=== PATIENT | male | born 1975 | race Caucasian/White ===

== ENCOUNTER 2017-02-17 09:28 | Inpatient (IN) | payer OTHER ==
[2017-02-17 10:03] VITALS: BMI 29.0
--- NOTE | 2017-02-17 12:27 | HP ---
Admission ROS [facility] - [facility] Chief Complaint: requesting rehab from marijuana and PCP Allergies/Adverse Reactions: Allergies Allergy/AdvReac Type Severity Reaction Status Date / Time No Known Allergies Allergy Verified 02/17/17 11:17 History of Present Illness: 42 yo m wiht h/o marijuana and PCP use disorder, sober x 2 years longest 2013- 2014. PMHx buipolar do, schizoaffective, nciotine dependence, HTN not taking meds . no suicidea ttempts, no si. at this time. reports depression and recent wt loss cause he is not hyngry Exam Limitations: No Limitations - Ebola screening Have you traveled outside of the country in the last 21 days: No (N) Have you had contact with anyone from an Ebola affected area: No Have you been sick,other than usual withdrawal symptoms: No Do you have a fever: No - Review of Systems Constitutional: No Symptoms Reported EENT: reports: No Symptoms Reported Respiratory: reports: No Symptoms reported Cardiac: reports: No Symptoms Reported GI: reports: No Symptoms Reported : reports: No Symptoms Reported Musculoskeletal: reports: No Symptoms Reported Integumentary: reports: No Symptoms Reported Neuro: reports: No Symptoms reported Endocrine: reports: No Symptoms Reported Hematology: reports: No Symptoms Reported Psychiatric: reports: Judgement Intact, Mood/Affect Appropiate, Orientated x3, Anxious, Depressed Other Systems: Reviewed and Negative Patient History - Patient Medical History Hx Anemia: No Hx Asthma: No Hx Chronic Obstructive Pulmonary Disease (COPD): No Hx Cancer: No Hx Cardiac Disorders: No Hx Congestive Heart Failure: No Hx Hypertension: Yes Hx Hypercholesterolemia: Yes Hx Pacemaker: No HX Cerebrovascular Accident: No Hx Seizures: No Hx Dementia: No Hx Diabetes: No Hx Gastrointestinal Disorders: No Hx Liver Disease: No Hx Genitourinary Disorders: No Hx Sexually Transmitted Disorders: No Hx Renal Disease (ESRD): No Hx Thyroid Disease: No Hx Human Immunodeficiency Virus (HIV): No (3 mos ago) Hx Hepatitis C: No Hx Depression: Yes Hx Suicide Attempt: Yes (no si) Hx Bipolar Disorder: No Hx Schizophrenia: Yes Other Medical History: schizoaffective - Patient Surgical History Past Surgical History: Yes Hx Neurologic Surgery: No Hx Cataract Extraction: No Hx Cardiac Surgery: No Hx Lung Surgery: No Hx Breast Surgery: No Hx Breast Biopsy: No Hx Abdominal Surgery: No Hx Appendectomy: No Hx Cholecystectomy: No Hx Genitourinary Surgery: No Hx Section: No Hx Orthopedic Surgery: No Other Surgical History: detached retina , right in 2006 Anesthesia Reaction: No - PPD History Previous Implant?: Yes Documented Results: Negative w/o proof PPD to be Administered?: Yes - Reproductive History Patient is a Female of Child Bearing Age (11 -55 yrs old): No Patient : No - Smoking Cessation Smoking history: Current every day smoker Have you smoked in the past 12 months: Yes Aproximately how many cigarettes per day: 6 Hx Chewing Tobacco Use: No Initiated information on smoking cessation: Yes 'Breaking Loose' booklet given: 02/17/17 - Substance & Tx. History Hx Alcohol Use: No Hx Substance Use: Yes Substance Use Type: Marijuana Hx Substance Use Treatment: Yes (last treatment episode [facility] iop) - Substances Abused PCP Route: Smoking Frequency: 3-6 times per week Amount used: $50 Age of first use: 20 Date of Last Use: 02/10/17 mariuana Route: Smoking Frequency: Daily Amount used: $50 Age of first use: 11 Date of Last Use: 02/16/17 Family Disease History - Family Disease History Family Disease History: Other: Father (etoh), Brother (etoh/drugs) Admission Physical Exam [facility] - Vital Signs Vital Signs: Vital Signs - 24 hr 02/17/17 10:00 Temperature 96.9 F L Pulse Rate 86 Respiratory 18 Rate Blood Pressure 150/86 - Physical General Appearance: Yes: Nourished, Appropriately Dressed HEENTM: Yes: Within Normal Limits, EOMI, Hearing grossly Normal, Normal ENT Inspection, Normocephalic, Normal Voice, PHI, Pharynx Normal Respiratory: Yes: Within Normal Limits, Chest Non-Tender, Lungs Clear, Normal Breath Sounds, No Respiratory Distress, No Accessory Muscle Use Neck: Yes: Within Normal Limits, No masses,lesions,Nodules, Supple, Trachea in good position Breast: Yes: Breast Exam Deferred Cardiology: Yes: Within Normal Limits, Regular Rhythm, Regular Rate, S1, S2 Abdominal: Yes: Normal Bowel Sounds, Non Tender, Flat, Soft Genitourinary: Yes: Within Normal Limits Back: Yes: Within Normal Limits, Normal Inspection Musculoskeletal: Yes: Within Normal Limits, full range of Motion, Gait Steady, Pelvis Stable Extremities: Yes: Within Normal Limits, Normal Capillary Refill, Normal Inspection, Normal Range of Motion, Non-Tender Neurological: Yes: compliance officer II-XII NML intact, Fully Oriented, Alert, Motor Strength 5/5, Normal Response, Depressed Affect Integumentary: Yes: Within Normal Limits, Normal Color, Dry Lymphatic: Yes: Within Normal Limits - Addiitonal Findings: no signs of withdrawawl wt loss and depression noted - Diagnostic (1) Cannabis dependence Current Visit: No Status: Acute (2) Depression Current Visit: No Status: Acute (3) History of antisocial personality disorder Current Visit: No Status: Acute (4) PCP abuse Current Visit: No Status: Acute (5) Substance induced mood disorder Current Visit: No Status: Acute (6) Retinal detachment Current Visit: No Status: Chronic (7) Hypertension Current Visit: No Status: Suspected Cleared for Admission [facility] - Detox or Rehab Claeared for Rehab Admission: Yes [facility] Breath Alcohol Content Breath Alcohol Content: 0 Urine Drug Screen - Results Drug Screen Negative: No Urine Drug Screen Results: THC-Marijuana, TONYA-Cocaine, PCP-Phencyclidine Inpatient Rehab Admission - Initial Determination Are CD services needed?: Yes Free of communicable disease: Yes Not in need of hospitalization: Yes - Rehab Admission Criteria Previous failed treatment: Yes Comorbidities: Yes Patient is meeting Inpatient Rehab admission criteria:: Yes
[2017-02-17] MEDS ORDERED: MAGNESIUM HYDROX 2400MG/30ML ORAL SUSPENSION 30 ML CUP PO PRN (12:28)
[2017-02-17] MEDS ORDERED: MENTHOL/PHENOL 1 EACH UD MM PRN (12:28)
[2017-02-17] MEDS ORDERED: guaiFENesin/D-METHORPHAN HB 10 ML UNIT-DOSE CUPS PO PRN (12:28)
[2017-02-17] MEDS ORDERED: hydrOXYzine PAMOATE 50 MG CAPSULE (FP) PO PRN (12:28)
[2017-02-17] MEDS ORDERED: LOPERAMIDE HCL 2 MG CAPSULE PO PRN (12:28)
[2017-02-17] MEDS ORDERED: MAGNESIUM CITRATE 300 ML BOTTLE PO PRN (12:28)
[2017-02-17] MEDS ORDERED: P-EPHED 60MG/TRIPROLIDI 2.5MG TABLET PO PRN (12:28)
[2017-02-17] MEDS ORDERED: MAG HYDROX/AL HYDROX/SIMETH 30 ML UNIT-DOSE CUP PO PRN (12:28)
[2017-02-17] MEDS: NICOTINE POLACRILEX 2 MG GUM BUC PRN ×3 (13:27→21:58)
[2017-02-17] MEDS ORDERED: TUBERCULIN PPD 5 TU/0.1ML VIAL ID ONE (13:27)
[2017-02-17] MEDS: NICOTINE 14 MG/24 HOURS TOPICAL PATCH TD SCH (13:27)
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
[2017-02-17 16:02] LABS: ALBUMIN 4.2 g/dl (3.4-5.0); ANION GAP 8 (8-16); BILIRUBIN,TOTAL 0.5 mg/dL (0.2-1.0); CALCIUM 9.2 mg/dL (8.5-10.1); CO2 25 mmol/L (21-32); CREATININE 1.2 mg/dL (0.7-1.3); GLUCOSE,RANDOM 80 mg/dL (74-106); SGOT/AST 15 U/L (15-37); SGPT/ALT 24 U/L (12-78); TOT PROT 7.8 g/dl (6.4-8.2)
[2017-02-17 16:03] LABS: ALK PHOS 71 U/L (45-117)
[2017-02-17 16:06] LABS: MCH 28.6 pg (25.7-33.7); MCHC 33.7 g/dl (32.0-35.9); MEAN CELL VOLUME 84.8 fl (80-96); MEAN PLT VOLUME 8.6 fl (7.5-11.1); PLATELET COUNT 303 K/MM3 (134-434); RDW 13.8 % (11.9-15.9); WHITE BLOOD COUNT 7.4 K/mm3 (4.0-10.0)
[2017-02-17] MEDS: THIAMINE HCL 100 MG TABLET (FP) PO SCH (21:57)
[2017-02-17] MEDS: QUEtiapine FUMARATE 100 MG TABLET (FP) PO SCH (21:57)
[2017-02-17] MEDS: DIVALPROEX SODIUM 250 MG TABLET E.C. (FP) PO SCH (21:57)
[2017-02-17 22:10] LABS: URINE APPEARANCE CLEAR; URINE BILIRUBIN NEGATIVE (NEGATIVE); URINE BLOOD NEGATIVE (NEGATIVE); URINE COLOR YELLOW; URINE GLUCOSE (UA) NEGATIVE (NEGATIVE); URINE KETONE NEGATIVE (NEGATIVE); URINE NITRITE NEGATIVE (NEGATIVE); URINE PROTEIN NEGATIVE (NEGATIVE)
[2017-02-18] MEDS: NICOTINE POLACRILEX 2 MG GUM BUC PRN ×4 (06:27→21:44)
[2017-02-18] MEDS: QUEtiapine FUMARATE 100 MG TABLET (FP) PO SCH ×3 (06:27→21:43)
[2017-02-18] MEDS: PARoxetine HCL 20 MG TABLET (FP) PO SCH (07:00)
[2017-02-18 09:23] LABS: URINE LEUK ESTERASE Negative (NEGATIVE)
--- NOTE | 2017-02-18 10:17 | EKG ---
Test Reason : Blood Pressure : / mmHG Vent. Rate : 073 BPM Atrial Rate : 073 BPM P-R Int : 150 ms QRS Dur : 082 ms QT Int : 380 ms P-R-T Axes : 057 059 045 degrees QTc Int : 418 ms NORMAL SINUS RHYTHM NORMAL ECG NO PREVIOUS ECGS AVAILABLE Confirmed by RAJAT PAUL, MDAHAVI ([id number]) on 02/18/2017 10:17:42 AM Referred By: Confirmed By:MADHAVI EARL MD
[2017-02-18] MEDS: DIVALPROEX SODIUM 250 MG TABLET E.C. (FP) PO SCH ×2 (10:22→21:43)
[2017-02-18] MEDS: NICOTINE 14 MG/24 HOURS TOPICAL PATCH TD SCH (10:22)
[2017-02-18] MEDS: PRENATAL VITAMINS W/ FOLIC ACID TABLET (FP) PO SCH (10:22)
[2017-02-18 11:18] LABS: HIV 1 & 2 AB NEGATIVE; HIV 1 AGp24 NEGATIVE
[2017-02-18] MEDS: THIAMINE HCL 100 MG TABLET (FP) PO SCH (21:43)
[2017-02-19] MEDS: QUEtiapine FUMARATE 100 MG TABLET (FP) PO SCH ×3 (06:31→21:46)
[2017-02-19] MEDS: PARoxetine HCL 20 MG TABLET (FP) PO SCH (06:31)
[2017-02-19] MEDS: NICOTINE POLACRILEX 2 MG GUM BUC PRN ×4 (06:32→21:47)
[2017-02-19] MEDS: DIVALPROEX SODIUM 250 MG TABLET E.C. (FP) PO SCH ×2 (10:18→21:46)
[2017-02-19] MEDS: PRENATAL VITAMINS W/ FOLIC ACID TABLET (FP) PO SCH (10:18)
[2017-02-19] MEDS: NICOTINE 14 MG/24 HOURS TOPICAL PATCH TD SCH (10:19)
[2017-02-19] MEDS: THIAMINE HCL 100 MG TABLET (FP) PO SCH (21:46)
[2017-02-20] MEDS: QUEtiapine FUMARATE 100 MG TABLET (FP) PO SCH ×3 (06:28→21:40)
[2017-02-20] MEDS: NICOTINE POLACRILEX 2 MG GUM BUC PRN ×4 (06:28→21:41)
[2017-02-20] MEDS: PARoxetine HCL 20 MG TABLET (FP) PO SCH (06:28)
[2017-02-20] MEDS: NICOTINE 14 MG/24 HOURS TOPICAL PATCH TD SCH (10:38)
[2017-02-20] MEDS: PRENATAL VITAMINS W/ FOLIC ACID TABLET (FP) PO SCH (10:38)
[2017-02-20] MEDS: DIVALPROEX SODIUM 250 MG TABLET E.C. (FP) PO SCH ×2 (10:38→21:40)
--- NOTE | 2017-02-20 16:01 | PN ---
[facility] Progress Note (SOAP) Subjective: patietn requesting medication fro his glaucoma, never got prescription or started medication Objective: 02/20/17 16:00 Laboratory Tests 02/17/17 02/17/17 02/17/17 13:00 13:05 13:05 WBC 7.4 RBC 5.35 Hgb 15.3 Hct 45.3 MCV 84.8 MCH 28.6 MCHC 33.7 RDW 13.8 Plt Count 303 MPV 8.6 Sodium Potassium Chloride Carbon Dioxide Anion Gap BUN Creatinine Creat Clearance w eGFR Random Glucose Calcium Total Bilirubin AST ALT Alkaline Phosphatase Total Protein Albumin Urine Color Yellow Urine Appearance Clear Urine pH 5.0 Ur Specific [place] 1.025 Urine Protein Negative Urine Glucose (UA) Negative Urine Ketones Negative Urine Blood Negative Urine Nitrite Negative Urine Bilirubin Negative Urine Urobilinogen 2.0 Ur Leukocyte Esterase Negative RPR Titer HIV 1&2 Antibody Screen Negative HIV P24 Antigen Negative 02/17/17 02/17/17 13:05 13:05 WBC RBC Hgb Hct MCV MCH MCHC RDW Plt Count MPV Sodium 141 Potassium 4.7 D Chloride 108 H Carbon Dioxide 25 Anion Gap 8 BUN 12 Creatinine 1.2 Creat Clearance w eGFR > 60 Random Glucose 80 Calcium 9.2 Total Bilirubin 0.5 D AST 15 D ALT 24 Alkaline Phosphatase 71 Total Protein 7.8 Albumin 4.2 Urine Color Urine Appearance Urine pH Ur Specific [place] Urine Protein Urine Glucose (UA) Urine Ketones Urine Blood Urine Nitrite Urine Bilirubin Urine Urobilinogen Ur Leukocyte Esterase RPR Titer Nonreactive HIV 1&2 Antibody Screen HIV P24 Antigen Assessment: 02/20/17 16:01 glaucoma, return to MD when discharged fro medication visine ordred for dry eyes , reviewed bloodwork results with patient , cousneled
[2017-02-20] MEDS: THIAMINE HCL 100 MG TABLET (FP) PO SCH (21:40)
[2017-02-21] MEDS: PARoxetine HCL 20 MG TABLET (FP) PO SCH (06:18)
[2017-02-21] MEDS: QUEtiapine FUMARATE 100 MG TABLET (FP) PO SCH ×3 (06:18→21:36)
[2017-02-21] MEDS: NICOTINE POLACRILEX 2 MG GUM BUC PRN ×4 (06:20→20:13)
[2017-02-21] MEDS: DIVALPROEX SODIUM 250 MG TABLET E.C. (FP) PO SCH ×2 (10:14→21:36)
[2017-02-21] MEDS: PRENATAL VITAMINS W/ FOLIC ACID TABLET (FP) PO SCH (10:14)
[2017-02-21] MEDS: NICOTINE 14 MG/24 HOURS TOPICAL PATCH TD SCH (10:14)
[2017-02-21] MEDS: THIAMINE HCL 100 MG TABLET (FP) PO SCH (21:36)
[2017-02-22] MEDS: NICOTINE POLACRILEX 2 MG GUM BUC PRN ×4 (06:38→21:45)
[2017-02-22] MEDS: PARoxetine HCL 20 MG TABLET (FP) PO SCH (06:38)
[2017-02-22] MEDS: QUEtiapine FUMARATE 100 MG TABLET (FP) PO SCH ×3 (06:38→21:44)
[2017-02-22] MEDS: PRENATAL VITAMINS W/ FOLIC ACID TABLET (FP) PO SCH (10:10)
[2017-02-22] MEDS: NICOTINE 14 MG/24 HOURS TOPICAL PATCH TD SCH (10:10)
[2017-02-22] MEDS: DIVALPROEX SODIUM 250 MG TABLET E.C. (FP) PO SCH ×2 (10:10→21:44)
[2017-02-22] MEDS: THIAMINE HCL 100 MG TABLET (FP) PO SCH (21:44)
[2017-02-23] MEDS: QUEtiapine FUMARATE 100 MG TABLET (FP) PO SCH ×3 (06:18→21:44)
[2017-02-23] MEDS: PARoxetine HCL 20 MG TABLET (FP) PO SCH (06:18)
[2017-02-23] MEDS: IBUPROFEN 400 MG TABLET (FP) PO PRN (06:18)
[2017-02-23] MEDS: NICOTINE POLACRILEX 2 MG GUM BUC PRN ×3 (06:19→21:44)
[2017-02-23] MEDS: NICOTINE 14 MG/24 HOURS TOPICAL PATCH TD SCH (10:35)
[2017-02-23] MEDS: DIVALPROEX SODIUM 250 MG TABLET E.C. (FP) PO SCH ×2 (10:36→21:44)
[2017-02-23] MEDS: PRENATAL VITAMINS W/ FOLIC ACID TABLET (FP) PO SCH (10:36)
[2017-02-23] MEDS: THIAMINE HCL 100 MG TABLET (FP) PO SCH (21:44)
[2017-02-24] MEDS: PARoxetine HCL 20 MG TABLET (FP) PO SCH (06:23)
[2017-02-24] MEDS: QUEtiapine FUMARATE 100 MG TABLET (FP) PO SCH ×3 (06:23→21:43)
[2017-02-24] MEDS: NICOTINE POLACRILEX 2 MG GUM BUC PRN ×4 (06:24→21:43)
[2017-02-24] MEDS: PRENATAL VITAMINS W/ FOLIC ACID TABLET (FP) PO SCH (10:29)
[2017-02-24] MEDS: DIVALPROEX SODIUM 250 MG TABLET E.C. (FP) PO SCH ×2 (10:29→21:42)
[2017-02-24] MEDS: NICOTINE 14 MG/24 HOURS TOPICAL PATCH TD SCH (10:30)
--- NOTE | 2017-02-24 10:30 | PN ---
[facility] Progress Note Note: Called opthamologist Dr. sheldon at number given no answer [phone], PATIENT AWARE WE ARE UNABLE TO PRESCRIBE GLAUCOMA EYEDROPS UNTIL WE KNOW WHA T THEY ARE. MAY WEAR DARK SUNGLASSES.
[2017-02-24] MEDS: THIAMINE HCL 100 MG TABLET (FP) PO SCH (21:42)
[2017-02-24] MEDS: TETRAHYDROZOLINE HCL 1 DROP DROPS OU PRN (21:44)
[2017-02-25] MEDS: QUEtiapine FUMARATE 100 MG TABLET (FP) PO SCH ×3 (06:13→21:48)
[2017-02-25] MEDS: PARoxetine HCL 20 MG TABLET (FP) PO SCH (06:13)
[2017-02-25] MEDS: NICOTINE POLACRILEX 2 MG GUM BUC PRN ×3 (06:14→21:49)
[2017-02-25] MEDS: PRENATAL VITAMINS W/ FOLIC ACID TABLET (FP) PO SCH (10:59)
[2017-02-25] MEDS: NICOTINE 14 MG/24 HOURS TOPICAL PATCH TD SCH (10:59)
[2017-02-25] MEDS: DIVALPROEX SODIUM 250 MG TABLET E.C. (FP) PO SCH ×2 (10:59→21:48)
[2017-02-25] MEDS: TETRAHYDROZOLINE HCL 1 DROP DROPS OU PRN (17:02)
[2017-02-25] MEDS: THIAMINE HCL 100 MG TABLET (FP) PO SCH (21:48)
[2017-02-26] MEDS: NICOTINE POLACRILEX 2 MG GUM BUC PRN ×2 (06:29→10:38)
[2017-02-26] MEDS: PARoxetine HCL 20 MG TABLET (FP) PO SCH (06:29)
[2017-02-26] MEDS: QUEtiapine FUMARATE 100 MG TABLET (FP) PO SCH ×3 (06:29→21:58)
[2017-02-26] MEDS: PRENATAL VITAMINS W/ FOLIC ACID TABLET (FP) PO SCH (10:36)
[2017-02-26] MEDS: NICOTINE 14 MG/24 HOURS TOPICAL PATCH TD SCH (10:36)
[2017-02-26] MEDS: TETRAHYDROZOLINE HCL 1 DROP DROPS OU PRN (10:36)
[2017-02-26] MEDS: DIVALPROEX SODIUM 250 MG TABLET E.C. (FP) PO SCH ×2 (10:36→21:57)
[2017-02-26] MEDS: FLUOROMETHOLONE 0.25% OU SCH ×2 (14:28→21:58)
[2017-02-26] MEDS: NICOTINE POLACRILEX 4 MG GUM BUC PRN ×2 (14:30→21:58)
[2017-02-26] MEDS: THIAMINE HCL 100 MG TABLET (FP) PO SCH (21:58)
[2017-02-27] MEDS: NICOTINE POLACRILEX 4 MG GUM BUC PRN ×4 (06:24→21:29)
[2017-02-27] MEDS: QUEtiapine FUMARATE 100 MG TABLET (FP) PO SCH ×3 (06:24→21:27)
[2017-02-27] MEDS: PARoxetine HCL 20 MG TABLET (FP) PO SCH (06:24)
[2017-02-27] MEDS: NICOTINE 14 MG/24 HOURS TOPICAL PATCH TD SCH (10:37)
[2017-02-27] MEDS: DIVALPROEX SODIUM 250 MG TABLET E.C. (FP) PO SCH ×2 (10:37→21:26)
[2017-02-27] MEDS: PRENATAL VITAMINS W/ FOLIC ACID TABLET (FP) PO SCH (10:37)
[2017-02-27] MEDS: FLUOROMETHOLONE 0.25% OU SCH ×2 (10:38→21:28)
[2017-02-27] MEDS: THIAMINE HCL 100 MG TABLET (FP) PO SCH (21:27)
[2017-02-28] MEDS: PARoxetine HCL 20 MG TABLET (FP) PO SCH (06:29)
[2017-02-28] MEDS: QUEtiapine FUMARATE 100 MG TABLET (FP) PO SCH ×3 (06:29→21:32)
[2017-02-28] MEDS: NICOTINE POLACRILEX 4 MG GUM BUC PRN ×3 (06:29→21:32)
[2017-02-28] MEDS: PRENATAL VITAMINS W/ FOLIC ACID TABLET (FP) PO SCH (10:14)
[2017-02-28] MEDS: FLUOROMETHOLONE 0.25% OU SCH ×2 (10:14→21:32)
[2017-02-28] MEDS: NICOTINE 14 MG/24 HOURS TOPICAL PATCH TD SCH (10:14)
[2017-02-28] MEDS: DIVALPROEX SODIUM 250 MG TABLET E.C. (FP) PO SCH ×2 (10:14→21:32)
[2017-02-28] MEDS: THIAMINE HCL 100 MG TABLET (FP) PO SCH (21:32)
[2017-03-01] MEDS: PARoxetine HCL 20 MG TABLET (FP) PO SCH (06:45)
[2017-03-01] MEDS: QUEtiapine FUMARATE 100 MG TABLET (FP) PO SCH ×3 (06:45→21:50)
[2017-03-01] MEDS: NICOTINE POLACRILEX 4 MG GUM BUC PRN ×4 (06:46→21:52)
[2017-03-01] MEDS: FLUOROMETHOLONE 0.25% OU SCH ×2 (10:29→21:51)
[2017-03-01] MEDS: NICOTINE 14 MG/24 HOURS TOPICAL PATCH TD SCH (10:30)
[2017-03-01] MEDS: DIVALPROEX SODIUM 250 MG TABLET E.C. (FP) PO SCH ×2 (10:30→21:50)
[2017-03-01] MEDS: PRENATAL VITAMINS W/ FOLIC ACID TABLET (FP) PO SCH (10:30)
[2017-03-01] MEDS: ACETAMINOPHEN 325 MG TABLET (FP) PO PRN (16:47)
[2017-03-01] MEDS: THIAMINE HCL 100 MG TABLET (FP) PO SCH (21:50)
[2017-03-02] MEDS: PARoxetine HCL 20 MG TABLET (FP) PO SCH (06:23)
[2017-03-02] MEDS: NICOTINE POLACRILEX 4 MG GUM BUC PRN ×4 (06:23→21:33)
[2017-03-02] MEDS: QUEtiapine FUMARATE 100 MG TABLET (FP) PO SCH ×3 (06:23→21:32)
[2017-03-02] MEDS: FLUOROMETHOLONE 0.25% OU SCH ×2 (10:36→21:32)
[2017-03-02] MEDS: NICOTINE 14 MG/24 HOURS TOPICAL PATCH TD SCH (10:36)
[2017-03-02] MEDS: DIVALPROEX SODIUM 250 MG TABLET E.C. (FP) PO SCH ×2 (10:36→21:32)
[2017-03-02] MEDS: PRENATAL VITAMINS W/ FOLIC ACID TABLET (FP) PO SCH (10:36)
[2017-03-02] MEDS: IBUPROFEN 400 MG TABLET (FP) PO PRN (12:39)
[2017-03-02] MEDS: ACETAMINOPHEN 325 MG TABLET (FP) PO PRN ×2 (18:11→23:04)
[2017-03-02] MEDS: THIAMINE HCL 100 MG TABLET (FP) PO SCH (21:32)
[2017-03-03] MEDS: QUEtiapine FUMARATE 100 MG TABLET (FP) PO SCH (06:09)
[2017-03-03] MEDS: PARoxetine HCL 20 MG TABLET (FP) PO SCH (06:09)
[2017-03-03] MEDS: NICOTINE POLACRILEX 4 MG GUM BUC PRN (06:09)
[2017-03-03 06:56] VITALS: BP 136/82; PULSE 84; TEMP 97.4
[2017-03-03] MEDS: IBUPROFEN 400 MG TABLET (FP) PO PRN (08:19)
--- NOTE | 2017-03-03 10:26 | PN ---
Psychiatric Progress Note Vital Signs: Vital Signs Period Temp Pulse Resp BP Sys/Cho Pulse Ox Last 24 Hr 97.4 F 84 16-18 136/82 Date of Session: 03/03/17 Chief Complaint:: discharge visit HPI: Patient has addressed PCP, cannabis dependence comorbid Schizoaffective disorder. ROS: HTN (no meds), hypercholesterolemia (no meds) and lens implant for retinal detachment of right eye, glaucoma left eye. Current Medications: Active Medications Generic Name Dose Route Start Last Admin Trade Name Freq PRN Reason Stop Dose Admin Acetaminophen 650 mg 02/17/17 12:28 03/02/17 23:04 Tylenol - PO 650 mg Q4H PRN Administration PAIN Al Hydroxide/Mg Hydroxide 30 ml 02/17/17 12:28 02/27/17 20:34 Mylanta Oral Suspension - PO 30 ml Q6H PRN Administration DYSPEPSIA Divalproex Sodium 250 mg 02/17/17 22:00 03/02/17 21:32 Depakote - PO 250 mg BID DELTA Administration Eucalyptus/Menthol/Phenol/Sorbitol 1 each 02/17/17 12:28 Cepastat Lozenge - MM Q4H PRN SORE THROAT Fluorometholone 1 drop 02/26/17 13:33 03/02/17 21:32 Fml Forte - OU 1 drop BID DELTA Administration Guaifenesin 10 ml 02/17/17 12:28 Robitussin Dm - PO Q6H PRN COUGH Hydroxyzine Pamoate 50 mg 02/17/17 12:28 Vistaril - PO Q4H PRN AGITATION Ibuprofen 400 mg 02/17/17 12:28 03/03/17 08:19 Motrin - PO 400 mg Q6H PRN Administration SEVERE PAIN Loperamide HCl 4 mg 02/17/17 12:28 Imodium - PO Q6H PRN DIARRHEA Magnesium Citrate 300 ml 02/17/17 12:28 Citroma - PO Q48H PRN CONSTIPATION Magnesium Hydroxide 30 ml 02/17/17 12:28 Milk Of Magnesia - PO DAILY PRN CONSTIPATION Nicotine 14 mg 02/17/17 12:40 03/02/17 10:36 Nicoderm Patch - TD 14 mg DAILY DELTA Administration Nicotine Polacrilex 4 mg 02/26/17 12:48 03/03/17 06:09 Nicorette Gum - BUC 4 mg Q2H PRN Administration NICOTINE REPLACEMENT RX Paroxetine HCl 20 mg 02/18/17 07:00 03/03/17 06:09 Paxil - PO 20 mg AM DELTA Administration Multivit/Folic Acid/Iron 1 tab 02/18/17 10:00 03/02/17 10:36 Vitamins (Sjr) - PO 1 tab DAILY DELTA Administration Pseudoephedrine/Triprolidine 1 combo 02/17/17 12:28 Actifed - PO TID PRN NASAL CONGESTION Quetiapine Fumarate 100 mg 02/17/17 22:00 03/03/17 06:09 Seroquel - PO 100 mg TID DELTA Administration Tetrahydrozoline HCl 1 drop 02/20/17 15:58 02/26/17 10:36 Visine - OU 1 drop BID PRN Administration DRY SKIN Thiamine HCl 100 mg 02/17/17 22:00 03/02/17 21:32 Vitamin B1 - PO 100 mg HS DELTA Administration Current Side Effect: No Lab tests ordered: No Lab tests reviewed: Yes Provider note:: Patient has completed today this treatment and met his goals, john continue to address his issues at [facility] outpatient treatment program, patient verbalized his resolution to continue maintain sobriety and changing behaviors/atitudes for the utilization of supports to prevent relapses. Patient continues to finding that Seroquel, Depakote and Paxil being efefctive, he reports feeling better, less anxious, stable mood, scripts provided for 30 days , patient is stable for discharge today. Total face to face time:: 25 Mental Status Exam - Mental Status Exam Alert and Oriented to: Time, Place, Person Cognitive Function: Good Patient Appearance: Well Groomed Mood: Hopeful Affect: Appropriate, Mood Congruent Patient Behavior: Appropriate, Cooperative Speech Pattern: Clear, Appropriate Voice Loudness: Normal Thought Process: Intact, Goal Oriented Thought Disorder: Not Present Hallucinations: Denies Suicidal Ideation: Denies Homicidal Ideation: Denies Insight/Judgement: Fair Sleep: Fair Appetite: Fair Muscle strength/Tone: Normal Psychiatric Treatment Plan - Problem List (1) PCP dependence Current Visit: Yes (2) Schizoaffective disorder Current Visit: Yes (3) Cannabis dependence Current Visit: No
[2017-03-03] MEDS: DIVALPROEX SODIUM 250 MG TABLET E.C. (FP) PO SCH (10:32)
[2017-03-03] MEDS: PRENATAL VITAMINS W/ FOLIC ACID TABLET (FP) PO SCH (10:32)
[2017-03-03] MEDS: NICOTINE 14 MG/24 HOURS TOPICAL PATCH TD SCH (10:32)
[2017-03-03] MEDS: FLUOROMETHOLONE 0.25% OU SCH (10:33)
== END 2017-03-03 11:10 | disposition home or self-care (01) | DRG 772 ==
LOC: YASAS 09:28 → Y5N 12:29
PROVIDERS: ADMIT Psychiatry & Neurology Psychiatry; ATTEND Psychiatry & Neurology Psychiatry
PROC: HZ42ZZZ Group Counseling for Substance Abuse Treatment, Cognitive-Behavioral (ICD-10-PCS; principal; 2017-02-17)
DX: F16.20 Hallucinogen dependence, uncomplicated (principal); F12.20 Cannabis dependence, uncomplicated; F25.9 Schizoaffective disorder, unspecified; I10 Essential (primary) hypertension; E78.00 Pure hypercholesterolemia, unspecified; H40.9 Unspecified glaucoma; Z96.1 Presence of intraocular lens
CPT/HCPCS: 36415; 80053; 81003; 85027; 86593; 87389; 93005; 93010